=== PATIENT | male | born 1995 | race Caucasian/White ===

== ENCOUNTER 2016-09-20 10:54 | Emergency (ER) | payer OTHER ==
[2016-09-20] MEDS ORDERED: NS 1,000 ML IV ONE ×2 (11:19→12:10)
[2016-09-20] MEDS ORDERED: ONDANSETRON 4 MG/2 ML VIAL IVP ONE (11:19)
[2016-09-20] MEDS: HYDROmorphONE/DILAUDID 1 MG/ML SYR IVP ONE (11:20)
[2016-09-20 12:08] LABS: % IMMATURE GRANULYOCYTES 0.3 % (0.0-1.1); ABSOLUTE IMMATURE GRANULOCYTES 0.02 10^3/uL (0.00-0.10); ADD DIFF? NO; ADD MORPH? NO; ADD SCAN? NO; ATYPICAL LYMPHOCYTE FLAG 10 (0-99); FRAGMENT RBC FLAG 0 (0-99); HEMATOCRIT 42.9 % (40.0-51.0); HEMOGLOBIN 15.6 g/dL (13.7-17.5); LEFT SHIFT FLG 0 (0-99); LIPEMIA HEMOLYSIS FLAG 90 (0-99); MEAN CELL HEMOGLOBIN 30.7 pg (27.9-34.1); MEAN CELL HEMOGLOBIN CONCENTR. 36.4 g/dL (32.4-36.7); MEAN CELL VOLUME 84.4 fL (81.5-99.8); MEAN PLATELET VOLUME 10.4 fL (8.7-11.7); PLATELET CLUMPS FLAG 0 (0-99); PLATELET COUNT 219 10^3/uL (150-400); RED BLOOD CELL COUNT 5.08 10^6/uL (4.40-6.38); RED CELL DISTRIBUTION WIDTH 12.2 % (11.5-15.2)
--- NOTE | 2016-09-20 12:08 | EDPHY ---
H & P Smoking Status: Never smoked Time Seen by Provider: 09/20/16 11:18 HPI/ROS: CHIEF COMPLAINT: Nausea, vomiting HISTORY OF PRESENT ILLNESS: 21-year-old male presents to the emergency department by private vehicle complaining of multiple episodes of nausea vomiting since early this morning. The patient states that he went to bed feeling fine and then around 3:30am woke up feeling nauseous. He has vomited too many times to count. No diarrhea. He describes sharp pain in his abdomen. No urinary symptoms. No chest pain or difficulty breathing. No known fevers or chills. No known contaminated food or water. No ill contacts. Drank 2 beers yesterday. REVIEW OF SYSTEMS: Constitutional: No fever, no chills. Eyes: No double or blurry vision. ENT: No sore throat. Respiratory: No cough, no shortness of breath. Cardiac: No chest pain. Gastrointestinal: Nausea, vomiting as above. Abdominal pain as above. No diarrhea. Genitourinary: No dysuria. Musculoskeletal: No neck or back pain. Skin: No rashes. Neurological: No headache. (Halie Melissaa Bishnu) Past Medical/Surgical History: History of ulcerative colitis (Chelsea Melissa) Social History: [employer] student , lives in a fraternity house (Chelsea Melissa) Physical Exam: General Appearance: Alert, no distress. Eyes: Pupils equal and round. Extraocular motions are all intact. ENT: Mouth: Mucous membranes dry. Respiratory: No wheezing, rhonchi, or rales, lungs are clear to auscultation. Cardiovascular: Regular rate and rhythm. Gastrointestinal: Abdomen is soft. He has mild tenderness with palpation in the right and left lower quadrants. Mild tenderness with palpation suprapubic area as well. No rebound, guarding or masses noted. No CVA tenderness bilaterally. Neurological: Alert and oriented x 3, cranial nerves II through XII grossly intact Skin: Warm and dry, no rashes. Musculoskeletal: Nontender to palpate along the cervical, thoracic or lumbar spine. Neck is supple. Extremities: Full range of motion and no peripheral edema. Psychiatric: Patient is oriented X 3, there is no agitation. (Chelsea Melissa) Constitutional: Initial Vital Signs Temperature (C) 36.8 C 09/20/16 11:02 Heart Rate 60 09/20/16 11:02 Respiratory Rate 16 09/20/16 11:02 Blood Pressure 78/61 L 09/20/16 11:02 O2 Sat (%) 99 09/20/16 11:02 O2 Delivery Mode Room Air O2 (L/minute) 2 Allergies/Adverse Reactions: No Known Allergies Allergy (Unverified 02/21/13 08:03) Home Medications: Medication Instructions Recorded Mercaptopurine [Purinethol 50 mg 25 mg PO DAILYAC 01/20/12 (RX)] Mesalamine [Pentasa 250 mg (RX)] 250 mg PO 01/20/12 Ondansetron Odt [Zofran Odt] 4 mg PO Q4PRN #4 tab 09/20/16 Medical Decision Making ED Course/Re-evaluation: 21-year-old male presents to the emergency department by private vehicle with multiple episodes of vomiting. The patient otherwise has an unremarkable exam. Patient was re-evaluated multiple times. Upon discharge, the patient had no abdominal pain. He was no longer feeling nauseous and is requesting something to drink. I discussed the pros and cons of CT imaging of his abdomen and pelvis including radiation exposure and the patient declined. I think this is reasonable. I did give him strict instructions to return if he developed recurring abdominal pain, fever, recurring vomiting, or if he felt worse in any way. The patient was comfortable with this plan. He will be discharged home with Zofran 4 mg, 4 tablets. Patient has a history of ulcerative colitis. Patient states that he has been in remission for several years. He has been compliant taking his prescribed medication. Case was discussed with Dr. Flaquita Nguyen, secondary supervising physician, who did not directly evaluate the patient but agrees with treatment and plan. (Chelsea Melissa) Differential Diagnosis: Including but not limited to gastritis, gastroenteritis, dehydration, colitis, acute appendicitis, kidney stone (Chelsea Melissa) Other Provider: The patient was evaluated and managed by the physician assistant track and field coach. I have reviewed this chart and I agree with the findings and plan of care as documented , as indicated by my signature. I am the secondary supervising physician. ( Flaquita Nguyen) - Data Points Laboratory Results: Laboratory Results 09/20/16 11:15 09/20/16 11:15 Medications Given: Discontinued Medications Hydromorphone HCl (Dilaudid) 1 mg IVP EDNOW ONE Stop: 09/20/16 11:20 Last Admin: 09/20/16 11:20 Dose: 0.5 mg Sodium Chloride (Ns) 1,000 mls @ 0 mls/hr IV ONCE ONE PRN Reason: Wide Open Stop: 09/20/16 11:20 Last Admin: 09/20/16 11:20 Dose: 1,000 mls Sodium Chloride (Ns) 1,000 mls @ 3,000 mls/hr IV ONCE ONE Stop: 09/20/16 12:29 Last Admin: 09/20/16 12:18 Dose: 1,000 mls Ondansetron HCl (Zofran) 4 mg IVP EDNOW ONE Stop: 09/20/16 11:20 Last Admin: 09/20/16 11:20 Dose: 4 mg Departure - Departure Disposition: Home, Routine, Self-Care Clinical Impression: Gastritis Condition: Good Instructions: Gastritis (ED), Acute Nausea and Vomiting (ED) Additional Instructions: Clear liquids and then advance diet as tolerated. Abdominal Pain: Return to the Emergency Department immediately for increasing pain, fever, vomiting, or if not completely better in 8-12 hours. Referrals: Salazar Henao, DO [Primary Care Provider] - 1-2 days without fail Prescriptions: Ondansetron Odt [Zofran Odt] 4 mg PO Q4PRN #4 tab
[2016-09-20 12:15] LABS: ALANINE AMINOTRANSFERASE 30 IU/L (21-72); ALBUMIN 5.2 g/dL (3.5-5.0); ALKALINE PHOSPHATASE 78 IU/L (38-126); ANION GAP 18 mEq/L (8-16); ASPARTATE AMINOTRANSFERASE 29 IU/L (17-59); BILIRUBIN,TOTAL 2.5 mg/dL (0.1-1.4); BILIRUBIN-CONJUGATED 0.4 mg/dL (0.0-0.5); BILIRUBIN-UNCONJUGATED 2.1 mg/dL (0.0-1.1); CALCIUM 10.4 mg/dL (8.5-10.4); CARBON DIOXIDE 22 mEq/l (22-31); CHLORIDE 100 mEq/L (97-110); CREATININE 0.8 mg/dL (0.7-1.3); GLOMERULAR FILTRATION RATE > 60; GLUCOSE 107 mg/dL (70-100); POTASSIUM 3.9 mEq/L (3.5-5.2); SODIUM 140 mEq/L (134-144); TOTAL PROTEIN 8.1 g/dL (6.3-8.2)
[2016-09-20 13:05] VITALS: RESP 16
[2016-09-20 14:05] VITALS: BP 108/64; PULSE 54; TEMP 97.5; O2SAT 94
== END 2016-09-20 14:04 | disposition home or self-care (01) ==
DX: K29.70 Gastritis, unspecified, without bleeding (principal)
CPT/HCPCS: 96374; J1170; J2405

== ENCOUNTER 2018-04-08 17:58 | Emergency (ER) | payer OTHER ==
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
[2018-04-08 18:11] VITALS: BP 157/83
== END 2018-04-08 19:14 ==
LOC: EDUNIT#
DX: M25.512 Pain in left shoulder (principal)